=== PATIENT | female | born 1965 | race African-American/Black ===

== ENCOUNTER 2016-12-25 07:56 | Emergency (ER) | payer SELFPAY ==
[~2016-12-25 07:56] MED LIST: ALBUTEROL17 GM INH; ALDACTONE25 MG PO; ALL DAY ALLERGY10 M2 PO; AMLODIPINE BESY10 MG; AMLODIPINE BESY10 MG PO; ASPIRIN PO; ASPIRIN325 M1; ASPIRIN325 M1 PO; ASPIRIN81 M2 PO; ATARAX PO; ATORVASTATIN CA80 MG PO; BACTRIM DS TABL1 TA1 PO; BENAZEPRIL PO; CARVEDILOL6.25 MG; CARVEDILOL6.25 MG PO; CETIRIZINE HCL10 MG; DICLOFENAC PO; DIOVAN PO; FLEXERIL PO; FLEXERIL10 MG PO; FLOVENT DI50 MCG/DIS IH; FUROSEMIDE40 MG PO; GLUCOPHAGE500 M1; HCTZ; HCTZ PO; HYDRALAZINE HCL50 MG PO; HYDROCHLOROTHIA25 MG PO; IBUPROFEN; IBUPROFEN PO; IBUPROFEN800 MG PO; INDOMETHACIN25 MG; INDOMETHACIN25 MG PO; KETOPROFEN PO; LANTUS100 U/ML; LASIX PO; LIPITOR PO; LORTAB 10-5001 EACH PO; LORTAB 5/500 TA1 TA1 PO; LOTENSIN20 MG; LOTENSIN20 MG PO; LOTREL PO; MEDROL DOSEPAK4 MG DOB; MEDROL PO; MEDROL4 MG/DOSE- PO; METFORMIN HCL500 M1 PO; METOPROLOL SUCC50 MG; NASONEX17 GM; NITROGLYGERIN0.4 MG SL; NITROGYLCERIN SUBLINGUAL; NORVASC; NORVASC PO; PAROXETINE HCL10 MG PO; PAXIL PO; PAXIL10 MG; PHENTERMINE PO; POTASSIUM CHLO10 MEQ; POTASSIUM CHLO10 MEQ PO; RANITIDINE HCL150 M1; ROBAXIN 750750 M1; ROBAXIN 750750 M1 PO; ROBITUSSIN ALL118 ML PO; SIMVASTATIN20 MG; SIMVASTATIN40 MG PO; TALADINE150 MG PO; TOPROL XL PO; TOPROL XL50 MG PO; TRIAMCINOLONE AC1 GM EXT; ZANTAC PO; ZYRTEC; ZYRTEC PO
== END 2016-12-25 08:02 | disposition home or self-care (01) ==
LOC: SED 07:56
DX: N89.8 Other specified noninflammatory disorders of vagina (principal); E11.9 Type 2 diabetes mellitus without complications; I10 Essential (primary) hypertension; Z79.4 Long term (current) use of insulin; Z88.0 Allergy status to penicillin; Z79.899 Other long term (current) drug therapy
CPT/HCPCS: 99282

== ENCOUNTER 2017-03-25 11:09 | Emergency (ER) | payer SELFPAY ==
[~2017-03-25] VITALS: Ht 160 cm; Wt 100.7 kg
== END 2017-03-25 12:40 | disposition home or self-care (01) ==
LOC: CFTX 11:09 → CED 11:09
DX: M79.671 Pain in right foot (principal); M79.672 Pain in left foot; I25.2 Old myocardial infarction; I10 Essential (primary) hypertension; Z88.0 Allergy status to penicillin
CPT/HCPCS: 99283